=== PATIENT | female | born 1970 | race Caucasian/White ===

== ENCOUNTER 2023-05-20 10:51 | Outpatient (CLI) | payer OTHER, SELFPAY ==
--- NOTE | 2023-05-20 10:52 | MM_ITS ---
PROCEDURE INFORMATION: Exam: MG Bilateral Screening 3D Mammography Exam date and time: 05/20/2023 10:38 AM Age: 52 years old Clinical indication: Screening examination TECHNIQUE: Imaging protocol: Bilateral Screening tomosynthesis and 2D mammography including computer-aided detection (CAD) when performed. COMPARISON: No relevant prior studies available. FINDINGS: MAMMOGRAPHY: Breast composition: The breasts are heterogeneously dense, which may obscure small masses. Mass: None. Architectural distortion: None. Calcifications: No suspicious calcifications. Asymmetric density: None. Skin thickening: None. Axillary adenopathy: None. IMPRESSION: No mammographic evidence of malignancy. Annual screening is recommended unless otherwise clinically indicated. ASSESSMENT: BI-RADS Category 1: Negative
== END 2023-05-20 23:59 ==
LOC: RAD 10:51
PROVIDERS: PCP Nurse Practitioner Family; Visit Provider Nurse Practitioner Family
DX: Z12.31 Encounter for screening mammogram for malignant neoplasm of breast (principal)
CPT/HCPCS: 77063; 77067

== ENCOUNTER 2023-05-25 11:06 | Outpatient (POV) | payer OTHER, SELFPAY ==
[2023-05-25 11:31] VITALS: BP 141/99; PULSE 100; RESP 18; BMI 27.3
--- NOTE | 2023-05-25 12:18 | EXP.PAIN.OV ---
HPI Data of Consult Patient: new to practice Consult date: 05/25/23 Requesting Physician: Sharron Barber APRN Primary Care Provider: Irene Jean APRN Consult Narrative Reason for consult: Neck pain, right shoulder pain, right hip pain History of present illness: Ms. Nelson is a 52 year old female who presents today as a new patient. She is a referral from Yaneli Jean's office. Today she rates her pain a 9 out of 10. Patient states she has pain in multiple locations including her neck, right hip and right hip. Patient does describe this as a throbbing sensation that is worse with increased activity or ambulation. Patient states that the shoulder symptoms have just been going on the last month. Patient states that she does not recall any injury or trauma however has very limited range of motion in this joint. Patient does state her neck pain and hip issues are chronic and have been going on for years. Patient states that all of them does interfere with her ability to perform activities of daily living such as cooking and cleaning. Patient states she has tried [id number] Tylenol and ibuprofen along with heat and ice and topicals with minimal relief. Patient states that in the past she did go to pain management in [place] with Dr. Naylor and was prescribed Percocet 10 mg. She states that this medication did help take the edge off however then this office closed. Patient states they also did multiple injections including epidurals and hip injections. She states that then she went to Dr. Bud Barber who did end up doing surgery for her cervical spine in August 2022. Patient states that she still has chronic pain in her neck and does not feel like it provided significant relief. Patient does state that she did have imaging done over at [facility]. Patient also states in the past that she has been seen by a neurosurgeon Dr. Milan. Patient states that she did just finished physical therapy in March however it made her symptoms worse. She states the pain does affect her ability to perform activities of daily living such as cooking or cleaning or even simple ambulation. Patient does state that the pain is interfering with her sleeping. She is requesting if we can send in pain medication. Patient states that she is currently trying to get disability. Her Leonard has been reviewed. CC: Sharron Barber APRN [facility] Disclaimer: The information contained in this section may have been updated after the patient was seen, as this information can be updated by other users. Medical History (Updated 05/25/23 @ 12:23 by Sharron Barber APRN) Rheumatoid arthritis DDD (degenerative disc disease) Surgical History History of reversal of tubal ligation H/O tubal ligation History of cervical spinal surgery Family History Father Rheumatoid arthritis Hypertension Coronary artery disease Mother Parkinson disease Hypertension Macular degeneration Social History Smoking Status: Current every day smoker tobacco type: cigarettes packs per day: 1 alcohol intake: current substance use type: denies use current occupational status: disabled Travel in the last 8 weeks: None Review of Systems Review of Systems Review of systems:: pertinent systems reviewed and negative unless documented below Review of systems (narrative): Review of Systems: General: No recent weight changes, no fever, no sleep disturbances Respiratory: No cough, no shortness of air, no recurring pulmonary infections Cardiovascular/peripheral vascular: No chest pain, no palpitations, no edema, no shortness of breath Gastrointestinal: No new onset incontinence, normal bowel movements reported Genitourinary: No new onset incontinence Musculoskeletal: Right shoulder pain, neck pain, right hip pain Psychiatric: [Normal mood/affect] Neurological: [Denies weakness in extremities], [denies balance issues] Meds Home Medications and Allergies Home Medications Medication Instructions Recorded Confirmed Type cyclobenzaprine 10 mg tablet 10 mg PO HS 05/06/23 05/06/23 History metoprolol succinate 25 mg 25 mg PO DAILY #30 tabs 05/06/23 05/06/23 Rx tablet,extended release 24 hr meloxicam 15 mg tablet 15 mg PO DAILY #30 tabs 05/25/23 Rx New Prescriptions to Start Prescriptions: Sharron Duran Allergies Allergy/AdvReac Type Severity Reaction Status Date / Time gabapentin AdvReac Unknown Dizziness Verified 05/06/23 10:55 Objective Vital signs: Pulse Resp BP 100 H 18 141/99 H 05/25/23 11:31 05/25/23 11:31 05/25/23 11:31 Narrative: Physical Exam: General: Alert and oriented x3, no acute distress, pleasant and cooperative Lungs: Respirations even and unlabored, symmetrical chest expansion Eyes: PERRL Musculoskeletal: Flexion and extension of right shoulder somewhat guarded secondary to pain, [antalgic gait noted] extreme tenderness along cervical spine during palpation and right SI Additional findings Additional findings: Cervical MRI without contrast 05/16/2022 [facility] Findings: Straightening of the cervical lordosis. Alignment is otherwise normal. Vertebral body height is preserved. Signal intensity within the substance of the spinal cord is normal. Bone marrow signal intensity is normal. Paraspinous soft tissues within normal limits. C2-3: No focal disc herniation, stenosis or neuroforaminal narrowing C3-4: Annular disc bulge with facet osteoarthropathy. No stenosis. Severe right neuroforaminal narrowing C4-5: No focal disc herniation, central canal stenosis or neuroforaminal narrowing. C5-6: Annular bulge with degenerative endplate changes and facet osteoarthropathy. No canal stenosis. Mild bilateral foraminal narrowing. C6-7: Left paracentral protrusion superimposed on disc osteophyte complex. Central canal stenosis asymmetric to the left. Mild right and severe left neuroforaminal narrowing C7-T1: Annular disc bulge no central canal stenosis or neuroforaminal narrowing Assessment and Plan *Assessment and plan (1) Low back pain: Status: Acute Qualifiers: Back pain laterality: right Chronicity: chronic Sciatica laterality: sciatica of right side Sciatica presence: with sciatica Qualified Code(s): M54.41 - Lumbago with sciatica, right side; G89.29 - Other chronic pain Category: Medical Code(s): M54.50 - Low back pain, unspecified (2) Sacroiliitis: Status: Acute Category: Medical Code(s): M46.1 - Sacroiliitis, not elsewhere classified (3) Right shoulder pain: Status: Acute Qualifiers: Chronicity: acute Qualified Code(s): M25.511 - Pain in right shoulder Category: Medical Code(s): M25.511 - Pain in right shoulder (4) Degenerative disc disease, cervical: Status: Acute Category: Medical Code(s): M50.30 - Other cervical disc degeneration, unspecified cervical region (5) Chronic pain syndrome: Status: Acute Category: Medical Code(s): G89.4 - Chronic pain syndrome Plan Patient is experiencing significant pain in her right shoulder with decreased range of motion. I will order x-ray and MRI without contrast of her right shoulder to evaluate for possible tears. I will order the patient a compounded cream. Patient did have point tenderness along her right SI however she does state that Dr. Barber did recently do a injection into her buttocks area and believes this was this injection. Patient states that the injections are always very temporary and do not provide significant relief in order to continue to do these. I have counseled the patient that we are an interventional pain clinic and that we do not prescribe any scheduled medications for new patients. Patient acknowledges understanding. Patient does deny any heart or kidney issues. I will send in a of meloxicam 15 mg daily. Patient has been counseled to discontinue all other NSAIDs while taking this medication and to take it with food to minimize GI upset. I have counseled the patient in future that she may benefit from a intrathecal pain pump trial or spinal cord stimulator trial. Educational handouts were given during today's visit and we will follow-up with this at future visits. Patient will return to clinic in 1 month for reevaluation of symptoms and plan of care. We will reach out to [facility] and get a copy of her imaging from their office. Patient has been instructed to contact the clinic with any concerns before the next appointment. Dr. Mcduffie has reviewed this note and agrees with this plan of care. This note was dictated using voice recognition software and make contain errors or omissions.
== END 2023-05-25 23:59 | disposition home or self-care (01) ==
PROVIDERS: PCP Nurse Practitioner Family; Visit Provider Nurse Practitioner Family
DX: M54.41 Lumbago with sciatica, right side (principal); M46.1 Sacroiliitis, not elsewhere classified; M25.511 Pain in right shoulder; M50.30 Other cervical disc degeneration, unspecified cervical region; G89.4 Chronic pain syndrome
CPT/HCPCS: 99202; G0463

== ENCOUNTER 2023-05-25 12:07 | Outpatient (CLI) | payer OTHER, SELFPAY ==
--- NOTE | 2023-05-25 12:11 | XR_ITS ---
FINAL REPORT CLINICAL HISTORY: RT SHOULDER PAIN FINDINGS: RIGHT SHOULDER 3 views demonstrate no acute fracture or dislocation. There are mild degenerative changes of the acromioclavicular and glenohumeral joints. The visualized bony structures are well aligned. No soft tissue abnormality is seen. Postoperative changes are seen in the lower cervical spine. IMPRESSION: No acute process. Reviewed, Interpreted and Dictated by Cedric Villa III, MD Transcribed by Xiomy Oliveira Authenticated and [facility]
== END 2023-05-25 23:59 ==
LOC: RAD 12:08
PROVIDERS: PCP Nurse Practitioner Family; Visit Provider Nurse Practitioner Family
DX: M25.511 Pain in right shoulder (principal)
CPT/HCPCS: 73030

== ENCOUNTER 2023-06-23 14:00 | Outpatient (CLI) | payer OTHER, SELFPAY ==
--- NOTE | 2023-06-23 14:05 | MR_ITS ---
FINAL REPORT CLINICAL HISTORY: RIGHT SHOULDER PAIN LIMITED ROM PAIN X 3 MONTHS NO KNOWN INJURY FINDINGS: Multiplanar MR imaging of the right shoulder was performed without contrast. Motion artifact is seen on all sequences which limits exam sensitivity. There is a high-grade full-thickness tear of the distal supraspinatus tendon with much of the tendon retracted to the mid humeral head. A small portion of the tendon may remain intact. There is mild muscle atrophy. There is mild a.c. joint arthrosis with mild outlet narrowing. A moderate amount of fluid is present in the subacromial/subdeltoid bursa. No labral tear is identified. There is tendinosis of the long head of the biceps tendon with a partial tear. No significant glenohumeral joint effusion is identified. The musculature is intact. There is no evidence of soft tissue mass or cyst. IMPRESSION: High-grade full-thickness tear of the distal supraspinatus tendon with much of the tendon retraction to the mid humeral head. Small portion of the tendon may remain intact. Mild muscle atrophy. Mild AC joint arthrosis with moderate subacromial/subdeltoid bursitis. Tendinosis of the long head of the biceps tendon with partial tear. Reviewed, Interpreted and Dictated by Cedric Villa III, MD Transcribed by Theresa Rowe Authenticated and [facility]
== END 2023-06-23 23:59 | disposition home or self-care (01) ==
LOC: RAD 14:01
PROVIDERS: PCP Nurse Practitioner Family; Visit Provider Nurse Practitioner Family
DX: M25.511 Pain in right shoulder (principal)
CPT/HCPCS: 73221

== ENCOUNTER 2023-06-25 10:06 | Outpatient (POV) | payer OTHER, SELFPAY ==
--- OUTSIDE RECORDS SUMMARY | 2023-06-25 10:08 | XMS_ITS | Clinical Summary ---
Author Name Unknown Address [address] [place] [address] Phone Organization [facility] Address [address] [place] [address] Phone Care Team Providers Care Coordinator Integrated Marketing Name Role Phone Prabhjot Junior GOLD Unavailable [phone] Bud Barber MD Unavailable [phone] Reason for Visit and Chief Complaint The Chief Complaint is: Neck and left arm pain/ POV C6-7 ACDF Problems Includes: Problems addressed during this encounter and other active Problems All Visits Onset Date Resolved Date Provider Condition S tatus Midback Pain 04/28/2022 Lamine Pappas PA-C Acti ve Last Documented On 3 9:40AM ; [facility] Neck Pain 04/28/2022 Lamine Pappas PA-C Active Last Documented On 3 9:40AM ; [facility] Plan of Treatment No Plan of Treatment Recorded Assessments Includes: Assessments from this encounter No Assessments Recorded Medical Equipment - Implanted Devices Includes: Current Devices No Medical Equipment Recorded Medications Includes: Medications discussed during this encounter and other current Medications Discontinued / Stopped on this date on 04/16/2022 Cyclobenzaprine HCl 10 MG Oral Tablet Pro vider: Diagnosis: Last Documented On 3 8:58AM By Sam Mcgrath ; [facility] Lidoderm 5% External Patch Provider: Grace Boo APRN Diagnosis: Last Documented On 3 8:59AM By Sam Mcgrath ; [facility], [facility] predniSONE 10 MG (21) Oral Tablet Therapy Pack Provider: Diagnosis: Last Documented On 3 8:59AM By Sam Mcgrath ; [facility] Acetaminophen 325 MG Oral Tablet Provider : Prabhjot Junior Diagnosis: Last Documented On 3 8:59AM By Sam Mcgrath ; [facility] Current Medications (continue as prescribed) Cyclobenzaprine HCl 10 MG Oral Tablet 10/13/2022 Pro vider: Diagnosis: Last Documented On 3 8:58AM By Sam Mcgrath ; [facility] Ondansetron 4 MG Oral Tablet Disintegrating 09/03/2022 Provider: Bud Barber MD Diagnosis: Last Documented On 3 8:58AM By Sam Mcgrath ; [facility] Past Medications on file oxyCODONE HCl 5 MG Oral Tablet 09/03/2022 - 09/18/2022 Provider: Bud Barber MD Diagnosis: 1 po q 4h prn breakthrough pain Last Documented On 3 12:05PM By Bud Barber ; [facility] Ondansetron 4 MG Oral Tablet Disintegrating 09/03/2022 - 10/03/2022 Provider: Bud Barber MD Diagnosis: 1 q 8 hours prn nausea Last Documented On 3 1:20PM By Lore Marcano ; [facility] Medications Administered Includes: Administered Medications from this encounter No Administered Medications Recorded Vital Signs Includes: Vital Signs from this encounter Vital Name 10/30/2022 08:59A Height (in) 71 Weight (lb) 158 Body Mass Index 22 Body Surface Area 1.9 Note: AM Last Documented: On 10/30/2022 8:59AM ; [facility] Results Includes: Results discussed during this encounter No Results Recorded For Specified Dates History of Present Illness Includes: History of Present Illness from this encounter ROSI Nelson is a 52 year old female. - Allergy list reviewed - Problem list reviewed - Medication list reviewed Social History Description Last Updated Tobacco non-user 11/03/2022 Last Documented On 3 3:11PM ; [facility] Not using alcohol 07/15/2022 Last Documented On 3 8:52AM ; [facility] Not a current smoker. 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 Last Documented On 3 8:52AM ; [facility] Smoking Status Unknown Procedures and Surgical History Includes: Procedures from this encounter Procedures Code Diagnosis Performing Provider Service Location Service Date X-RAY EXAM OF NECK SPINE 2 VIEWS 01353 Fusion of spine, cervical region Bud Barber MD [facility] 10/30/2022 Last Documented On 3 7:47AM ; [facility] use of tobacco assessment performed 1000F Last Documented On 3 8:53AM ; [facility] review of medications documented 1160F Last Documented On 3 8:59AM ; [facility] an X-ray was performed 58343 Last Documented On 3 8:53AM ; [facility] Medical History Includes: Medical History addressed during this encounter Description Last Updated DDD L-Spine ~ 04/28/2022 Last Documented On 3 8:52AM ; [facility], [facility] Past Surgical History: Tubal ~Tubal reve rsal 04/28/2022 Last Documented On 3 8:52AM ; [facility], [facility] History of arthritis 04/28/2022 Last Documented On 3 8:52AM ; [facility], [facility] Family History Includes: Family History addressed during this encounter Description Last Updated Family history of cancer 04/28/2022 Last Documented On 3 8:52AM ; [facility], [facility] Family history of heart disease 04/28/19 Last Documented On 3 8:52AM ; [facility], [facility] Family history of rheumatoid arthritis 0 04/28/2022 Last Documented On 3 8:52AM ; [facility], [facility] Paternal history of family history of he art disease 04/28/2022 Last Documented On 3 8:52AM ; [facility], [facility] Paternal history of rheumatoid arthritis 04/28/2022 Last Documented On 3 8:52AM ; [facility], [facility] Sororal history of family history of can cer 04/28/2022 Last Documented On 3 8:52AM ; [facility], [facility] Review of Systems Includes: Review of Systems from this encounter Systemic: Not feeling tired and no recent weight loss. Recent weight gain. Head: No headache and no sinus pain. Eyes: No vision problems, no Cataracts, no Glasses/Contacts, and no Glaucoma. Otolaryngeal: No hearing loss and no tinnitus. Cardiovascular: Cardiovascular symptoms Arm neck pain spreads into chest area and side of breast and chest pain or discomfort. No palpitations, no Hypertension, and no High Cholesterol. Pulmonary: No daytime asthma symptoms and no chronic cough. No wheezing. Gastrointestinal: No heartburn and no abdominal pain. No Indigestion, no Acid Reflux, no Peptic Ulcer, no GI Stomach Bleed, and no Ulcers. Endocrine: No hot flashes, no muscle weakness, no Diabetes, no Hypothyroid, and no Hyperthyroid. Hematologic: No easy bleeding, no tendency for easy bruising, and no Anemia. Musculoskeletal: Arthritis and lower back pain. No soft tissue swelling. Pain localized to one or more joints. Neurological: Neurological symptoms Tingling. No dizziness and no convulsions. Numbness. Psychological: No anxiety. Emotional lability. No depression. Insomnia. Not crying for no reason. Skin: No dry skin. No Ulcers, no Scars, and no rash. Allergic and Immunologic: No complaint of seasonal allergic reaction. Mental Status Includes: Mental Status from this encounter Description No anxiety Functional Status Includes: Functional Status from this encounter No Functional Status Recorded Physical Exam Includes: Physical Exam from this encounter Allergies Includes: Active Allergies Substance Type Reaction Onset Date Resolved Date Statu s penicillAMINE Allergy 04/28/2022 Activ e Last Documented On 3 8:52AM ; [facility], [facility] Encounters Encounter Provider Location Date Check-In Time Check- Out Time Diagnosis Post Op Bud Barber MD [facility] 3 8:51AM 9:22AM Insurance Includes: Active Insurance Policies Plan Name Member ID Group # Subscriber Relationship Effect cindy Dates 1 - [facility] [id number] Radha Nelson Self 03/16/2022 - Unknown Clinical Notes Includes: Clinical Notes from this encounter * Progress note Date Encounter Last Documented by 10/30/2022 Post Op Last documented on 11/03/2022; 3:11 PM, Bud Barber MD; [facility], [facility] Active Problems & Conditions - Midback Pain - Neck Pain Chief Complaint The Chief Complaint is: Neck and left arm pain/ POV C6-7 ACDF. Referred Here Referred by self. History of Present Illness Radha Nelson is a 52 year old female. - Allergy list reviewed - Problem list reviewed - Medication list reviewed Current Medication - Cyclobenzaprine HCl 10 MG Oral Tablet 30 days, 0 refills - Ondansetron 4 MG Oral Tablet Disintegrating 6 days, 0 refills Past Medical/Surgical History Diagnoses: Arthritis DDD L-Spine . Surgical: - Past Surgical History: Tubal Tubal reversal Social History Not a current smoker. Current diet: No recent change in diet. Caffeine use: Caffeine use. Tobacco use: Tobacco non-user. Alcohol: Not using alcohol. Alcohol use: 2 drinks or less per day. Drug Use: Not using drugs. Habits: Exercising regularly. 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 Allergies - penicillAMINE Family History Cancer Heart disease Rheumatoid arthritis Paternal: Heart disease Rheumatoid arthritis Sororal: Cancer Review Of Systems Systemic: Not feeling tired and no recent weight loss. Recent weight gain. Head: No headache and no sinus pain. Eyes: No vision problems, no Cataracts, no Glasses/Contacts, and no Glaucoma. Otolaryngeal: No hearing loss and no tinnitus. Cardiovascular: Cardiovascular symptoms Arm neck pain spreads into chest area and side of breast and chest pain or discomfort. No palpitations, no Hypertension, and no High Cholesterol. Pulmonary: No daytime asthma symptoms and no chronic cough. No wheezing. Gastrointestinal: No heartburn and no abdominal pain. No Indigestion, no Acid Reflux, no Peptic Ulcer, no GI Stomach Bleed, and no Ulcers. Endocrine: No hot flashes, no muscle weakness, no Diabetes, no Hypothyroid, and no Hyperthyroid. Hematologic: No easy bleeding, no tendency for easy bruising, and no Anemia. Musculoskeletal: Arthritis and lower back pain. No soft tissue swelling. Pain localized to one or more joints. Neurological: Neurological symptoms Tingling. No dizziness and no convulsions. Numbness. Psychological: No anxiety. Emotional lability. No depression. Insomnia. Not crying for no reason. Skin: No dry skin. No Ulcers, no Scars, and no rash. Allergic and Immunologic: No complaint of seasonal allergic reaction. Physical Findings - Vitals taken 10/30/2022 08:59 am AM Height 71 in Weight 158 lbs Body Mass Index 22 kg/m2 Body Surface Area 1.9 m2 Previous Tests Imaging: X-Ray: An X-ray was performed. Available previous imaging studies were reviewed Available previous history reviewed Notes This dictation was done with voice recognition software and may contain errors and omissions. Patient is here for follow-up of her cervical fusion. She is feeling much better. Her arm pain is getting better. Her incisions clean dry and intact and her x-rays show the implants in good position. She is quite happy with the surgery but we will check her back in 3 months for final recheck Practice Management Use of tobacco assessment performed Review of medications documented. Care Team - Prabhjot Junior Health Reminders - Assess BMI satisfied 10/30/2022. - Assess Tobacco Use satisfied 11/03/2022.
--- OUTSIDE RECORDS SUMMARY | 2023-06-25 10:08 | XMS_ITS | Clinical Summary ---
Author Name Unknown Address [address] [place] [address] Phone Organization [facility] Address [address] [place] [address] Phone Care Team Providers Care Creative Project Manager Name Role Phone Prabhjot Junior GOLD Unavailable [phone] Bud Barber MD Unavailable [phone] Reason for Visit and Chief Complaint [facility] Problems Includes: Problems addressed during this encounter and other active Problems All Visits Onset Date Resolved Date Provider Condition S tatus Midback Pain 04/28/2022 Lamine Pappas PA-C Acti ve Last Documented On 3 9:40AM ; [facility] Neck Pain 04/28/2022 Lamine Pappas PA-C Active Last Documented On 3 9:40AM ; [facility] Plan of Treatment No Plan of Treatment Recorded Assessments Includes: Assessments from this encounter No Assessments Recorded Medical Equipment - Implanted Devices Includes: Current Devices No Medical Equipment Recorded Medications Includes: Medications discussed during this encounter and other current Medications Current Medications (continue as prescribed) Cyclobenzaprine HCl 10 MG Oral Tablet 10/13/2022 Pro vider: Diagnosis: Last Documented On 3 8:58AM By Sam Mcgrath ; [facility], [facility] Ondansetron 4 MG Oral Tablet Disintegrating 09/03/2022 Provider: Bud Barber MD Diagnosis: Last Documented On 3 8:58AM By Sam Mcgrath ; [facility] Medications Administered Includes: Administered Medications from this encounter No Administered Medications Recorded Results Includes: Results discussed during this encounter No Results Recorded For Specified Dates History of Present Illness Includes: History of Present Illness from this encounter No History of Present Illness Recorded Social History No Social History Recorded - Smoking Status Unknown Procedures and Surgical History Includes: Procedures from this encounter Procedures Code Diagnosis Performing Provider Service Location Service Date Arthodesis,anter ior interbody 58343 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 Bud Barber MD [facility] 09/03/2022 Last Documented On 3 10:36AM ; [facility] INSERT SPINE FIXATION DEVICE [address] 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 Bud Barber MD [facility] 09/03/2022 Last Documented On 3 10:36AM ; [facility] SPINAL BONE ALLOGRAFT 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 Bud Barber MD [facility] 09/03/2022 Last Documented On 3 10:36AM ; [facility] Medical History Includes: Medical History addressed during this encounter No Medical History Recorded Family History Includes: Family History addressed during this encounter No Family History Recorded Review of Systems Includes: Review of Systems from this encounter No Review of Systems Recorded Mental Status Includes: Mental Status from this encounter No Mental Status Recorded Functional Status Includes: Functional Status from this encounter No Functional Status Recorded Physical Exam Includes: Physical Exam from this encounter No Physical Exam Recorded Allergies Includes: Active Allergies Substance Type Reaction Onset Date Resolved Date Statu s penicillAMINE Allergy 04/28/2022 Activ e Last Documented On 3 8:52AM ; [facility] Encounters Encounter Provider Location Date Check-In Time Check-Out Time Diagnosis [facility] Bud Barber MD Surgery 3 09/04/2022 9:10AM 11:59PM Insurance Includes: Active Insurance Policies Plan Name Member ID Group # Subscriber Relationship Effect cindy Dates 1 - [facility] Plan [id number] Radha Yesandra Self 03/16/2022 - Unknown Clinical Notes Includes: Clinical Notes from this encounter No Clinical Notes Recorded
--- OUTSIDE RECORDS SUMMARY | 2023-06-25 10:08 | XMS_ITS | Clinical Summary ---
Author Name Unknown Address [address] [place] [address] Phone Organization [facility] , [facility] Address [address] [place] [address] Phone Care Team Providers Care Health Science Specialist Name Role Phone Prabhjot Junior GOLD Unavailable [phone] Bud Barber MD Unavailable [phone] Reason for Visit and Chief Complaint The Chief Complaint is: Neck and left arm pain/ POV C6-7 ACDF Problems Includes: Problems addressed during this encounter and other active Problems All Visits Onset Date Resolved Date Provider Condition S tatus Midback Pain 04/28/2022 Lamine Pappas PA-C Acti ve Last Documented On 3 9:40AM ; [facility] Neck Pain 04/28/2022 Lamine Pappas PA-C Active Last Documented On 3 9:40AM ; [facility] Plan of Treatment No Plan of Treatment [...] On 3 8:58AM By Sam Mcgrath ; [facility], [facility] Ondansetron 4 MG Oral Tablet Disintegrating 09/03/2022 Provider: Bud Barber MD Diagnosis: Last Documented On 3 8:58AM By Sam Mcgrath ; [facility], [facility] Past Medications on file oxyCODONE HCl 5 MG Oral Tablet 09/03/2022 - 09/18/2022 Provider: Bud Barber MD Diagnosis: 1 po q 4h prn breakthrough pain Last Documented On 3 12:05PM By Bud Barber ; [facility], [facility] Ondansetron 4 MG Oral Tablet Disintegrating 09/03/2022 - 10/03/2022 Provider: Bud Barber MD Diagnosis: 1 q 8 hours prn nausea Last Documented On 3 1:20PM By Lore Marcano ; [facility], [facility] Medications Administered Includes: Administered Medications from this encounter No Administered Medications Recorded Vital Signs Includes: Vital Signs from this encounter Vital Name 09/18/2022 01:02P Height (in) 71 Weight (lb) 165 Body Mass Index 23 Body Surface Area 1.9 Note: nya Last Documented: On 09/18/2022 1:02PM ; [facility], [facility] Results Includes: Results discussed during this encounter No Results Recorded For Specified Dates History of Present Illness Includes: History of Present Illness from this encounter ROSI Nelson is a 51 year old female. - Allergy list reviewed - Problem list reviewed - Medication list reviewed Social History Description Last Updated Tobacco non-user 11/03/2022 Last Documented On 3 12:58PM ; [facility], [facility] Not using alcohol 07/15/2022 Last Documented On 3 12:58PM ; [facility], [facility] Not a current smoker. 07/10/2022 Last Documented On 3 12:58PM ; [facility], [facility] Caffeine use 04/28/2022 Last Documented On 3 12:58PM ; [facility] Exercising regularly 04/28/2022 Last Documented On 3 12:58PM ; [facility], [facility] No recent change in diet 04/28/2022 Last Documented On 3 12:58PM ; 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 On 3 12:58PM ; [facility], [facility] Smoking Status Unknown Procedures and Surgical History Includes: Procedures from this encounter Procedures Code Diagnosis Performing Provider Service Location Service Date X-RAY EXAM OF NECK SPINE 2 VIEWS 69526 Fusion of spine, cervical region Bud Barber MD [facility] 09/18/2022 Last Documented On 3 9:20AM ; [facility], [facility] use of tobacco assessment performed 1000F Last Documented On 3 12:59PM ; [facility], [facility] an X-ray was performed 24448 Last Documented On 3 12:59PM ; [facility], [facility] Medical History Includes: Medical History addressed during this encounter Description Last Updated DDD L-Spine ~ 04/28/2022 Last Documented On 3 12:58PM ; [facility], [facility] Past Surgical History: Tubal ~Tubal reve rsal 04/28/2022 Last Documented On 3 12:58PM ; [facility], [facility] History of arthritis 04/28/2022 Last Documented On 3 12:58PM ; [facility], [facility] Family History Includes: Family History addressed during this encounter Description Last Updated Family history of cancer 04/28/2022 Last Documented On 3 12:58PM ; [facility], [facility] Family history of heart disease 04/28/19 23 Last Documented On 3 12:58PM ; [facility], [facility] Family history of rheumatoid arthritis 0 04/28/2022 Last Documented On 3 12:58PM ; [facility] Paternal history of family history of he art disease 04/28/2022 Last Documented On 3 12:58PM ; [facility] Paternal history of rheumatoid arthritis 04/28/2022 Last Documented On 3 12:58PM ; [facility], [facility] Sororal history of family history of can cer 04/28/2022 Last Documented On 3 12:58PM ; [facility], [facility] Review of Systems Includes: Review of [...] e Last Documented On 3 8:52AM ; [facility] Encounters Encounter Provider Location Date Check-In Time Check- Out Time Diagnosis Post Op Bud Barber MD [facility] 3 12:49PM 1:22PM Insurance Includes: Active Insurance Policies Plan Name Member ID Group # Subscriber Relationship Effect cindy Dates 1 - [facility] Plan [id number] Radha Nelson Self 03/16/2022 - Unknown Clinical Notes Includes: Clinical Notes from this encounter * Progress note Date Encounter Last Documented by 09/18/2022 Post Op Last documented on 09/23/2022; 8:38 AM, Bud Barber MD; [facility] Active Problems & Conditions - Midback Pain - Neck Pain Chief Complaint The Chief Complaint is: Neck and left arm pain/ POV C6-7 ACDF. Referred Here Referred by self. History of Present Illness Radha Nelson is a 51 year old female. - Allergy list reviewed - Problem list reviewed - Medication list reviewed Current Medication - Acetaminophen 325 MG Oral Tablet 3 days, 0 refills - Cyclobenzaprine HCl 10 MG Oral Tablet 30 days, 0 refills - Lidoderm 5% External Patch 30 days, 0 refills - Ondansetron 4 MG Oral Tablet Disintegrating 1 q 8 hours prn nausea, 30 days, 0 refills - predniSONE 10 MG (21) Oral Tablet Therapy Pack 6 days, 0 refills Past Medical/Surgical History Diagnoses: Arthritis DDD L-Spine . Surgical: - Past Surgical History: Tubal Tubal reversal Social History Not a current smoker. Current diet: No recent change in diet. Caffeine use: Caffeine use. Tobacco use: Tobacco non-user. Alcohol: Not using alcohol. Alcohol use: 2 drinks or less per day. Drug Use: Not using drugs. Habits: Exercising regularly. 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 Allergies - penicillAMINE Family History Cancer Heart [...] allergic reaction. Physical Findings - Vitals taken 09/18/2022 01:02 pm mbaker Height 71 in Weight 165 lbs Body Mass Index 23 kg/m2 Body Surface Area 1.9 m2 Previous Tests Imaging: X-Ray: An X-ray was performed. Available previous imaging studies were reviewed Available previous history reviewed Notes This dictation was done with voice recognition software and may contain errors and omissions. Patient is here for follow-up of her cervical fusion. Her incisions clean dry and intact he has good strength both upper extremities. She has been complaining of little bit of dizziness intermittently. In any event we will watch that. Her x- rays show the implants to be in good position. We will see her back in 6 weeks. Practice Management Use of tobacco assessment performed. Care Team - Prabhjot Junior Health Reminders - Assess BMI satisfied 09/18/2022. - Assess Tobacco Use satisfied 07/10/2022.
--- OUTSIDE RECORDS SUMMARY | 2023-06-25 10:08 | XMS_ITS ---
Author Name Unknown Address [address] [place] [address] Phone Organization [facility] Address [address] [place] [address] Phone Care Team Providers Care Frog Catcher Name Role Phone Prabhjot Junior GOLD Unavailable [phone] Bud Barber MD Unavailable [phone] Problems Includes: Active, inactive, and resolved Problems All Visits Onset Date Resolved Date Provider Condition S tatus Midback Pain 04/28/2022 Lamine Pappas PA-C Acti ve Last Documented On 3 9:40AM ; [facility] Neck Pain 04/28/2022 Lamine Pappas PA-C Active Last Documented On 3 9:40AM ; [facility], [facility] Plan of Treatment Pending Tests Order Diagnosis Results Due Ordering P rovider Radiology - MRI MRI Cervical Spine 05/12/22 Siav Pappas PA-C Last Documented On 3 8:13AM ; [facility], [facility] Instructions to patient Lose weight Last Documented On 3 7:37AM ; [facility] Intervention and counseling on cessation of tobacco use Last Documented On 3 4:13PM ; [facility] Intervention and counseling on cessation of tobacco use Last Documented On 3 11:20AM ; [facility] Assessments Includes: Assessments for all patient encounters No Assessments Recorded Instructions Includes: Instructions for all patient encounters Instructions to patient Lose weight Last Documented On 3 7:37AM ; [facility] Intervention and counseling on cessation of tobacco use Last Documented On 3 4:13PM ; [facility] Intervention and counseling on cessation of tobacco use Last Documented On 3 11:20AM ; [facility] Medical Equipment - Implanted Devices Includes: Current and historical Devices No Medical Equipment Recorded Medications Includes: Current and historical Medications Current Medications (continue as prescribed) Cyclobenzaprine HCl 10 MG Oral Tablet 10/13/2022 Pro vider: Diagnosis: Last Documented On 3 8:58AM By Sam Mcgrath ; [facility] Ondansetron 4 MG Oral Tablet Disintegrating 09/03/2022 Provider: Bud Barber MD Diagnosis: Last Documented On 3 8:58AM By Sam Mcgrath ; [facility] Past Medications on file oxyCODONE HCl 5 MG Oral Tablet 09/03/2022 - 09/18/2022 Provider: Bud Barber MD Diagnosis: 1 po q 4h prn breakthrough pain Last Documented On 3 12:05PM By Bud Barber ; [facility], [facility] Ondansetron 4 MG Oral Tablet Disintegrating 09/03/2022 - 10/03/2022 Provider: Bud Barber MD Diagnosis: 1 q 8 hours prn nausea Last Documented On 3 1:20PM By Lore Marcano ; [facility], [facility] Cyclobenzaprine HCl 10 MG Oral Tablet 04/16/2022 - Provider: Diagnosis: Last Documented On 3 8:58AM By Sam Mcgrath ; [facility] Lidoderm 5% External Patch 04/14/2022 - 10/30/2022 Pro vider: Britney V Darke LAUNDRY AIDE Diagnosis: Last Documented On 3 8:59AM By Sam Mcgrath ; [facility] predniSONE 10 MG (21) Oral Tablet Therapy Pack 0 04/09/2022 - 10/30/2022 Provider: Diagnosis: Last Documented On 3 8:59AM By Sam Mcgrath ; [facility] Acetaminophen 325 MG Oral Tablet 12/18/2021 - 10/31/19 Provider: Prabhjot Junior Diagnosis: Last Documented On 3 8:59AM By Sam Mcgrath ; [facility] Medications Administered Includes: Administered Medications in patient's chart No Administered Medications Recorded Vital Signs Includes: Vital Signs from 06/24/2022 through 06/25/2023 Vital Name 10/30/2022 08:59A 09/18/2022 01:02P 07/10 09:38A Height (in) 71 71 71 Weight (lb) 158 165 265 Body Mass Index 22 23 37 Body Surface Area 1.9 1.9 2.4 Note: AM mbaker mg Last Documented: On 10/30/2022 8:59AM ; [facility] On 09/18/2022 1:02PM ; [facility] On 07/10/2022 9:38AM ; [facility] Results Includes: Results from 06/24/2022 through 06/25/2023 No Results Recorded For Specified Dates History of Present Illness History of Present Illness not supported for this document type No History of Present Illness Recorded Social History Description Last Updated Tobacco non-user 11/03/2022 Last Documented On 3 3:11PM ; [facility] Not using alcohol 07/15/2022 Last Documented On 3 7:37AM ; [facility] Not a current smoker. 07/10/2022 Last Documented On 3 7:37AM ; [facility] Tobacco use 04/28/2022 Last Documented On 3 8:13AM ; [facility] Caffeine use 04/28/2022 Last Documented On 3 8:13AM ; [facility], [facility] Exercising regularly 04/28/2022 Last Documented On 3 8:13AM ; [facility] No recent change in diet 04/28/2022 Last Documented On 3 8:13AM ; [facility] Not using drugs 04/28/2022 Last Documented On 3 8:13AM ; [facility] Alcohol use: 2 drinks or less per day Last Documented On 3 8:13AM ; [facility] 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 Last Documented On 3 8:13AM ; [facility], [facility] Smoking Status Unknown Procedures and Surgical History Includes: Procedures from 06/24/2022 through 06/25/2023 Procedures Code Diagnosis Performing Provider Service Location Service Date X-RAY EXAM OF NECK SPINE 2 VIEWS 64628 Fusion of spine, cervical region Bud Barber MD [facility] 10/30/2022 Last Documented On 3 7:47AM ; [facility] X-RAY EXAM OF NECK SPINE 2 VIEWS 49391 Fusion of spine, cervical region Bud Barber MD [facility] 09/18/2022 Last Documented On 3 9:20AM ; [facility] SPINAL BONE ALLOGRAFT 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 Bud Barber MD [facility] 09/03/2022 Last Documented On 3 10:36AM ; [facility] INSERT SPINE FIXATION DEVICE 76013 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 Bud Barber MD [facility] 09/03/2022 Last Documented On 3 10:36AM ; [facility] Arthodesis,anterior interbody 80128 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 Bud Barber MD [facility] 09/03/2022 Last Documented On 3 10:36AM ; [facility] SPINAL BONE ALLOGRAFT (Hatchery Supervisor surgeon) 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 Royer Ramirez PA-C [facility] 09/03/2022 Last Documented On 3 6:32AM ; [facility], [facility] INSERT SPINE FIXATION DEVICE (Hatchery Supervisor surgeon) 88834 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 Royer Ramirez PA-C [facility] 09/03/2022 Last Documented On 3 6:32AM ; [facility] Arthodesis,anterior interbody (Hatchery Supervisor surgeon) [id number] 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 Royer Ramirez PA-C [facility] 09/03/2022 Last Documented On 3 6:32AM ; [facility] Surgical History Last Updated History of Past Surgical History: 2022 Last Documented On 3 8:13AM ; [facility] Medical History Includes: Medical History in patient's chart Description Last Updated DDD L-Spine ~ 04/28/2022 Last Documented On 3 8:13AM ; [facility] Past Surgical History: Tubal ~Tubal reve rsal 04/28/2022 Last Documented On 3 8:13AM ; [facility], [facility] History of arthritis 04/28/2022 Last Documented On 3 8:13AM ; [facility] Family History Includes: Family History in patient's chart Description Last Updated Family history of cancer 04/28/2022 Last Documented On 3 8:13AM ; [facility] Family history of heart disease 04/28/19 23 Last Documented On 3 8:13AM ; [facility] Family history of rheumatoid arthritis 0 04/28/2022 Last Documented On 3 8:13AM ; [facility], [facility] Paternal history of family history of he art disease 04/28/2022 Last Documented On 3 8:13AM ; [facility] Paternal history of rheumatoid arthritis 04/28/2022 Last Documented On 3 8:13AM ; [facility], [facility] Sororal history of family history of can cer 04/28/2022 Last Documented On 3 8:13AM ; [facility] Review of Systems Review of Systems not supported for this document type No Review of Systems Recorded Mental Status Description No anxiety Functional Status No Functional Status Recorded Physical Exam Physical Exam not supported for this document type No Physical Exam Recorded Allergies Includes: Active, inactive, and resolved Allergies Substance Type Reaction Onset Date Resolved Date Statu s penicillAMINE Allergy 04/28/2022 Activ e Last Documented On 3 8:52AM ; [facility] Encounters Includes: Encounters from 06/24/2022 through 06/25/2023 Encounter Provider Location Date Check-In Time Check-Out Time Diagnosis Post Op Bud Barber MD [facility] 10/31/19 8:51AM 9:22AM Post Op Bud [facility] 09/[facility] 12:49PM 1:22PM [Patient Encounter] Bud Barber MD 09/04/19 23 07/10/2022 10:29AM 07/10/2022 11:59PM [facility] Bud [facility] MD Surgery 09/04/19 23 09/04/2022 9:10AM 07/10/2022 11:59PM [Patient Encounter] Bud Barber MD 07/24/19 23 07/10/2022 2:44PM 07/10/2022 11:59PM Follow Up Bud Barber MD [facility] 07/11/19 9:35AM 10:13AM Insurance Includes: Active Insurance Policies Plan Name Member ID Group # Subscriber Relationship Effect cindy Dates 1 - [facility] [employer] [facility] [id number] Radha Nelson Self 03/16/2022 - Unknown Clinical Notes Includes: Signed Clinical Notes starting from 02/27/2022 * Progress note Date Encounter Last Documented by 10/30/2022 Post Op Last documented on 11/03/2022; 3:11 PM, Bud Barber MD; [facility] Active Problems & Conditions - Midback Pain [...] drugs. Habits: Exercising regularly. 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 Allergies - penicillAMINE Family History Cancer Heart [...] 10/30/2022. - Assess Tobacco Use satisfied 11/03/2022. * Progress note Date Encounter Last Documented by 09/18/2022 Post Op Last documented on 09/23/2022; 8:38 AM, Bud Barber MD; [facility], [facility] Active Problems & Conditions - Midback Pain [...] drugs. Habits: Exercising regularly. 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 Allergies - penicillAMINE Family History Cancer Heart [...] 09/18/2022. - Assess Tobacco Use satisfied 07/10/2022. * Progress note Date Encounter Last Documented by 07/10/2022 Follow Up Last documented on 07/15/2022; 7:37 AM, Bud Barber MD; [facility], [facility] Active Problems & Conditions - Midback Pain - Neck Pain Chief Complaint The Chief Complaint is: Neck and left arm pain. Referred Here Referred by. History of Present Illness Radha Nelson is a 51 year old female. - Symptoms Nothing makes the pain better, a lot of movement makes the pain worse. - Allergy list reviewed - Problem list reviewed - Medication list reviewed - Previous history of new onset pain 02/2022 Injury is not work related or an automotive accident - Sudden onset - Pain is constant (100% of the time) - Patient pain level from 1-10: 10 - No previous treatment. Patient is here today for follow-up of her cervical epidural. She has a disc herniation at C6-7. She complains of neck and left arm symptoms that radiates down into the left hand for the first 4 fingers she says it does not irritate the thumb. She has been dealing with this since January 2022. The pain will radiate pain into the left axillary area. She cannot get comfortable does get a little bit of relief laying on the right side she has difficulty sleeping she is in pain management for her previous lower back problems and takes [place] 7.5 which says that does not help that. states she is taking the [place] 7.5 months does not seem to help. She denies any bowel or bladder issues with this. She states when she keeps her arm in a dependent position the tips of her fingers will turn purple she showed me a picture on her phone in regards to this. Patient states the injection she had on June 13 did not give her any relief she feels that she has been dropping things. She does not smoke. Current Medication - Acetaminophen 325 MG Oral Tablet 3 days, 0 refills - Cyclobenzaprine HCl 10 MG Oral Tablet 30 days, 0 refills - Lidoderm 5% External Patch 30 days, 0 refills - predniSONE 10 MG (21) Oral Tablet Therapy Pack 6 days, 0 refills Past Medical/Surgical History Diagnoses: Arthritis DDD L-Spine . Surgical: - Past Surgical History: Tubal Tubal reversal Social History Not a current smoker. Current diet: No recent change in diet. Caffeine use: Caffeine use. Tobacco use: Tobacco non-user. Alcohol: Not using alcohol. Drug Use: Not using drugs. Habits: Exercising regularly. 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 Allergies - penicillAMINE Family History Paternal: Heart disease Rheumatoid arthritis Sororal: Cancer [...] allergic reaction. Physical Findings - Vitals taken 07/10/2022 09:38 am mg Height 71 in Weight 265 lbs Body Mass Index 37 kg/m2 Body Surface Area 2.4 m2 Standard Measurements: - Patient was overweight. Cervical range of motion was full she does have some limitations with right rotation Patient does have some tricep weakness today on the left and some wrist flexion weakness. Deltoid strength 4 out of 5 biceps 4 out of 5 no long track findings Tests CT of the cervical spine from April 14, 2022 showed degenerative changes at C5-C6 C6-C7 2 view cervical spine 04/28/2022 shows degenerative changes at the same levels CTA of the left upper extremity was negative MRI cervical spine shows disc herniations C6-C7 CT of the cervical spine from April 14, 2022 showed degenerative changes at C5-C6 C6-C7 2 view cervical spine 04/28/2022 shows degenerative changes at the same levels CTA of the left upper extremity was negative MRI cervical spine shows disc herniations C6-C7 Assessment C6-C7 disc herniation Previous Tests Available previous imaging studies were reviewed Available previous history reviewed Counseling/Education - Lose weight Plan Patient was seen by myself and Dr. Barber Lamine Pappas PA-C. Follow-up post surgery she has been educated on the benefits risk alternative surgery for ACDF at C6-C7 she understands and consents to proceed. Patient does take [place] 7.5 regularly for back pain Notes This dictation was done with voice recognition software and may contain errors and omissions. Practice Management Use of tobacco assessment performed. Care Team - Prabhjot Junior Health Reminders - Assess BMI satisfied 07/10/2022. - Assess Tobacco Use satisfied 07/10/2022. - Follow Up Plan BMI Management satisfied 07/15/2022.
--- OUTSIDE RECORDS SUMMARY | 2023-06-25 10:08 | XMS_ITS | Clinical Summary ---
Author Name Unknown Address [address] [place] [address] Phone Organization [facility] Address [address] [place] [address] Phone Care Team Providers Care Production Welding Supervisor Name Role Phone Prabhjot Junior GOLD Unavailable [phone] Bud Barber MD Unavailable [phone] Reason for Visit and Chief Complaint [Patient Encounter] Problems Includes: Problems addressed during this encounter and other active Problems All Visits Onset Date Resolved Date Provider Condition S tatus Midback Pain 04/28/2022 Lamine Pappas PA-C Acti ve Last Documented On 3 9:40AM ; [facility] Neck Pain 04/28/2022 Lamine Pappas PA-C Active Last Documented On 3 9:40AM ; [facility] Plan of Treatment No Plan of [...] On 3 8:58AM By Sam Mcgrath ; [facility] Ondansetron 4 MG Oral Tablet Disintegrating 09/03/2022 Provider: Bud Barber MD Diagnosis: Last Documented On 3 8:58AM By Sam Mcgrath ; [facility] Medications Administered Includes: Administered Medications from this encounter No Administered Medications Recorded Results Includes: Results discussed during this encounter No Results Recorded For Specified Dates History of Present Illness Includes: History of Present Illness from this encounter No History of Present Illness Recorded Social History No Social History Recorded - Smoking Status Unknown Medical History Includes: Medical History addressed during [...] e Last Documented On 3 8:52AM ; [facility] Encounters Encounter Provider Location Date Check-In Time Check-Out Time Diagnosis [Patient Encounter] Bud Barber MD 07/23/2022 2:44PM 11:59PM Insurance Includes: Active Insurance Policies Plan Name Member ID Group # Subscriber Relationship Effect cindy Dates 1 - [facility] Plan [id number] Radha Saucedo 03/16/2022 - Unknown Clinical Notes Includes: Clinical Notes from this encounter No Clinical Notes Recorded
--- OUTSIDE RECORDS SUMMARY | 2023-06-25 10:08 | XMS_ITS | Clinical Summary ---
Author Name Unknown Address [address] [place] [address] Phone Organization [facility] Address [address] [place] [address] Phone Care Team Providers Care Hematology Nurse Educator Name Role Phone Prabhjot Junior GOLD Unavailable [phone] Bud Barber MD Unavailable [phone] Reason for Visit and Chief Complaint [Patient Encounter] Problems Includes: Problems addressed during this encounter and other active Problems All Visits Onset Date Resolved Date Provider Condition S tatus Midback Pain 04/28/2022 Lamine Pappas PA-C Acti ve Last Documented On 3 9:40AM ; [facility] Neck Pain 04/28/2022 Lamine Pappas PA-C Active Last Documented On 3 9:40AM ; [facility] Plan of Treatment No Plan of Treatment Recorded Assessments Includes: Assessments from this encounter No Assessments Recorded Medical Equipment - Implanted Devices Includes: Current Devices No Medical Equipment Recorded Medications Includes: Medications discussed during this encounter and other current Medications New / Renewed during this visit Bud Barber MD on 09/03/2022 oxyCODONE HCl 5 MG Oral Tablet Provider: Bud Barber MD 15 day supply: 50 tablet, 0 refills Diagnosis: 1 po q 4h prn breakthrough pain Pharmacy: [facility] #[id number] - [address] [place] [address], [id number] - Last Documented On 3 12:05PM By Bud Barber ; [facility] Ondansetron 4 MG Oral Tablet Disintegrating Provider: Bud Barber MD 30 day supply: 20 tablet, 0 refills Diagnosis: 1 q 8 hours prn nausea Pharmacy: [facility] #[id number] - [address] [facility], [address] - Last Documented On 3 1:20PM By Lore Marcano ; [facility] Current Medications (continue as prescribed) Cyclobenzaprine HCl 10 MG Oral Tablet 10/13/2022 Pro vider: Diagnosis: Last Documented On 3 8:58AM By Sam Mcgrath ; [facility] Ondansetron 4 MG Oral Tablet Disintegrating 09/03/2022 Provider: Bud Barber MD Diagnosis: Last Documented On 3 8:58AM By Sam Mcgrath ; [facility] Medications Administered Includes: Administered Medications from [...] e Last Documented On 3 8:52AM ; [facility] Encounters Encounter Provider Location Date Check-In Time Check-Out Time Diagnosis [Patient Encounter] Bud Barber MD 09/03/2022 10:29AM 11:59PM Insurance Includes: Active Insurance Policies Plan Name Member ID Group # Subscriber Relationship Effect cindy Dates 1 - [facility] Plan [id number] Radha Nelson Self 03/16/2022 - Unknown Clinical Notes Includes: Clinical Notes from this encounter No Clinical Notes Recorded
--- OUTSIDE RECORDS SUMMARY | 2023-06-25 10:08 | XMS_ITS ---
Care Plan - [facility] Created on: June 25, 2023 Radha Nelson : 1970 Sex: Female Author Name Unknown Address [address] [place] [address] Phone Organization [facility] Address [address] [place] [address] Phone Care Team Providers Care Emd Special Education Teacher Name Role Phone Prabhjot Junior Unavailable [phone] Bud Barber MD Unavailable [phone]
[2023-06-25 10:13] VITALS: BP 145/99; PULSE 110; RESP 16; O2SAT 100; BMI 23.3
--- NOTE | 2023-06-25 10:45 | A.OFFVIS_ITS ---
[facility] Pain Management SOAP Note Subjective:: Patient is a pleasant 52-year-old female who presents today for 1 month follow- up in the MRI follow-up. Today she rates her pain a 9 out of 10. Patient denies any new trauma or injury. She does state today that she has her good days and her bad days and today seems to be bothering her more. She states that she is still having extreme pain with her right shoulder and denies any new injury in this joint. She states that it is a constant aching, throbbing sensation. She also states she is experiencing continued pain in and around her low back. Patient was prescribed meloxicam and compounded cream at her last visit however she states she really did not notice significant relief with this. Patient is asking whether or not if we can do something stronger for her pain. Her Leonard has been reviewed. Review of Systems: General: No recent weight changes, no fever, no sleep disturbances Respiratory: No cough, no shortness of air, no recurring pulmonary infections Cardiovascular/peripheral vascular: No chest pain, no palpitations, no edema, no shortness of breath Gastrointestinal: No new onset incontinence, normal bowel movements reported Genitourinary: No new onset incontinence Musculoskeletal: Low back pain, right shoulder pain Psychiatric: [Normal mood/affect] Neurological: [Denies weakness in extremities], [denies balance issues] Objective:: Physical Exam: General: Alert and oriented x3, no acute distress, pleasant and cooperative Lungs: Respirations even and unlabored, symmetrical chest expansion Eyes: PERRL Musculoskeletal: Flexion and extension of right shoulder and lumbar [spine] somewhat guarded secondary to pain, [antalgic gait noted] Neurological: Speech clear, no gross sensory deficit FINDINGS: Multiplanar MR imaging of the right shoulder was performed without contrast. Motion artifact is seen on all sequences which limits exam sensitivity. There is a high-grade full-thickness tear of the distal supraspinatus tendon with much of the tendon retracted to the mid humeral head. A small portion of the tendon may remain intact. There is mild muscle atrophy. There is mild a.c. joint arthrosis with mild outlet narrowing. A moderate amount of fluid is present in the subacromial/subdeltoid bursa. No labral tear is identified. There is tendinosis of the long head of the biceps tendon with a partial tear. No significant glenohumeral joint effusion is identified. The musculature is intact. There is no evidence of soft tissue mass or cyst. IMPRESSION: High-grade full-thickness tear of the distal supraspinatus tendon with much of the tendon retraction to the mid humeral head. Small portion of the tendon may remain intact. Mild muscle atrophy. Mild AC joint arthrosis with moderate subacromial/subdeltoid bursitis. Tendinosis of the long head of the biceps tendon with partial tear. Reviewed, Interpreted and Dictated by Cedric Villa III, MD Transcribed by Theresa Rowe Authenticated and [facility] Assessment:: Degenerative disc disease of cervical spine, low back pain, right shoulder pain, chronic pain syndrome Plan:: Patient is experiencing worsening pain due to her right shoulder and low back symptoms. I have discussed with the patient that she may benefit from a right suprascapular nerve block. Risk and benefits were discussed with the patient and at this time I will first order a referral to Dr. Khari Bell for evaluation of her full-thickness tear in her right shoulder. I have also discussed with the patient that we will send in a 1 month supply of [place] 5 mg twice a day. Patient will return to clinic in 1 month for reevaluation of symptoms and plan of care. Risks and benefits of the medication have been explained in detail to the patient. The patient does understand the risk of dependence on the medication when given over a prolonged period. Patient has been advised of risks of oversedation with the prescribed medication. Narcan has been offered to the paitent in the event of oversedation. Patient has been advised that a family member should also be educated regarding administration of Narcan. The patient has been advised to consult with his/her primary care provider and pharmacist regarding drug-drug interaction of medications currently prescribed. Patient has been prescribed a controlled substance after being counseled on the medication, medication safety, and possible side effects. Opioid contract was reviewed and signed by the patient, and that they have agreed to all of the terms set forth by our compliance program. Patient has been instructed to contact the clinic with any concerns before the next appointment. Dr. Mcduffie has reviewed this note and agrees with this plan of care. This note was dictated using voice recognition software and make contain errors or omissions. [facility] Disclaimer: The information contained in this section may have been updated after the patient was seen, as this information can be updated by other users. Medical History Rheumatoid arthritis DDD (degenerative disc disease) Surgical History History of reversal of tubal ligation H/O tubal ligation History of cervical spinal surgery Family History Father Rheumatoid arthritis Hypertension Coronary artery disease Mother Parkinson disease Hypertension Macular degeneration Social History Smoking Status: Current every day smoker tobacco type: cigarettes packs per day: 1 alcohol intake: current substance use type: denies use current occupational status: other Travel in the last 8 weeks: None
== END 2023-06-25 23:59 | disposition home or self-care (01) ==
PROVIDERS: PCP Nurse Practitioner Family; Visit Provider Nurse Practitioner Family
DX: M50.30 Other cervical disc degeneration, unspecified cervical region (principal); M54.50 Low back pain, unspecified; M25.511 Pain in right shoulder; G89.4 Chronic pain syndrome
CPT/HCPCS: 99212; G0463